=== PATIENT | male | born 2000 | race Caucasian/White ===

== ENCOUNTER 2024-03-27 17:47 | Emergency (ER) | payer SELFPAY ==
[2024-03-27 18:47] LABS: CORONAVIRUS COVID-19 NAA NEGATIVE (NEGATIVE); INFLUENZA A NAA NEGATIVE (NEGATIVE); INFLUENZA B NAA NEGATIVE (NEGATIVE); RESPIRATORY SYNCYTIAL VIR NAA NEGATIVE (NEGATIVE)
[2024-03-27] MEDS: Albuterol/Ipratropium 3.0-0.5 MG/3 ML Neb Soln NEB ONE (19:08)
[2024-03-27] MEDS: methylPREDNISolone Sodium Succinate 125 MG/2 ML SDV IVPUSH ONE (19:08)
[2024-03-27] MEDS: Sodium Chloride 0.9% 1,000 ML IV ONE (19:09)
[2024-03-27] MEDS: Ketorolac 30 MG/ML SDV IVPUSH ONE (19:09)
[2024-03-27 19:20] LABS: BASOPHILS ABSOLUTE AUTO 0.06 K/uL (0.00-0.20); BASOPHILS PERCENT AUTO 0.4 % (0.0-1.0); EOSINOPHILS ABSOLUTE AUTO 0.26 K/uL (0.00-0.45); EOSINOPHILS PERCENT AUTO 1.9 % (0.0-6.0); HEMATOCRIT 47.2 % (42.0-52.0); HEMOGLOBIN 15.6 g/dL (14.0-18.0); IMMATURE GRAN ABSOLUTE AUTO 0.05 K/uL (0.00-0.05); IMMATURE GRAN PERCENT AUTO 0.4 % (0.0-0.4); LYMPHOCYTES ABSOLUTE AUTO 2.07 K/uL (1.00-4.80); LYMPHOCYTES PERCENT AUTO 15.5 % (24.0-44.0); MEAN CORPUSCULAR HEMOGLOBIN 28.7 pg (28.0-32.0); MEAN CORPUSCULAR HGB CONC 33.1 g/dL (32.0-36.0); MEAN CORPUSCULAR VOLUME 86.9 fL (83.0-99.0); MEAN PLATELET VOLUME 9.8 fL (9.4-12.4); MONOCYTES ABSOLUTE AUTO 1.49 K/uL (0.00-0.80); MONOCYTES PERCENT AUTO 11.1 % (0.0-8.0); NEUTROPHILS ABSOLUTE AUTO 9.46 K/uL (1.80-7.70); NEUTROPHILS PERCENT AUTO 70.7 % (41.0-71.0); PLATELET COUNT,PLT 326 K/uL (150-400); RED BLOOD CELL COUNT 5.43 M/uL (4.52-5.90); WHITE BLOOD CELL COUNT,WBC 13.39 K/uL (3.9-11.3)
[2024-03-27] MEDS: cefTRIAXone 1 GM in Sodium Chloride 0.9% 50 ML IV ONE (19:38)
[2024-03-27] MEDS: Azithromycin 250 MG Tab PO STA (19:39)
[2024-03-27 19:48] LABS: ALBUMIN 3.9 g/dL (3.4-5.0); BILIRUBIN TOTAL 0.2 mg/dL (0.2-1.0); CALCIUM 9.1 mg/dL (8.5-10.1); CARBON DIOXIDE,CO2 23.3 mmol/L (21.0-32.0); EST CRCL DRUG DOSING (CG) 99.08 mL/min; PROTEIN TOTAL,TP 7.7 g/dL (6.4-8.2)
== END 2024-03-27 20:20 | disposition home or self-care (01) ==
LOC: MW.ED 17:47
DX: J18.9 Pneumonia, unspecified organism (principal); F17.210 Nicotine dependence, cigarettes, uncomplicated; Z79.899 Other long term (current) drug therapy
CPT/HCPCS: 0241U; 36415; 71045; 80053; 85025; 96365; 96375; 99285; A9270; J0696; J1885; J2919; J3490; J7030; 99284; J7620-GY